=== PATIENT | female | born 1980 | race Two or more races ===

== ENCOUNTER → 2019-07-05 | Emergency (ER) | payer OTHER ==
[~2019-07-05] MED LIST: ACETAMINOPHEN 1000 MG/100 ML VIAL (NON FORMULARY) IVPB ONE; ACETAMINOPHEN INJECTION 100 ML IVPB ONE; AMPICILLIN NA/SULBACTAM NA 3 GM VIAL ONE; AMPICILLIN NA/SULBACTAM NA 3 GM in SODIUM CHLORIDE 100 ML IVPB ONE; DOXYCYCLINE HYCLATE 100 MG VIAL ONE; DOXYCYCLINE INJECTION 100 MG in DEXTROSE 5%-WATER - 100 ML IVPB ONE; HYDROmorphone HCL CARPU-JECT 1 MG/1 ML DISP.SYRIN ONE; HYDROmorphone HCL CARPU-JECT 2 MG/1 ML DISP.SYRIN IVPUSH ONE; ONDANSETRON 4 MG/2 ML VIAL IVPB ONE; ONDANSETRON 4 MG/2 ML VIAL ONE; SODIUM CHLORIDE 1,000 ML IV ONE; morphine CARPU-JECT 2 MG/1 ML DISP.SYRIN IVPUSH ONE; morphine SULFATE 4 MG/ML VIAL ONE
[2019-07-05 08:49] VITALS: BMI 18.4
--- NOTE | 2019-07-05 09:07 | PDOC ---
History of Present Illness - General Chief Complaint: Pain Stated Complaint: FEVER ABD PAIN FOR SINCE MAY Time Seen by Provider: 07/05/19 08:42 History Source: Patient Exam Limitations: No Limitations - History of Present Illness Travel History: No Initial Comments: 07/05/19 09:02 39y F presents with lower abd pain. Pt notse that she has been having low grade fevers for the past 10 days, pt also notse a gradual onset of left lower abd pain and back pain for the past few days. Patient had gone to see her primary care doctor had some lab work done And was found to be anemic and has pending follow-up, However the patient notes that her she had some lower back pain that has been worsening made it difficult for her sleep last night. Patient notes that she had some fever and chills she took some Tylenol with improvement of her fever. When she had chills she also had one episode of nonbloody vomiting. The patient denies any other symptoms including sore throat, body aches, cough, Dysuria, foul-smelling urine, diarrhea, Vaginal discharge, vaginal bleeding. Patient notes that her left lower quadrant pain is constant nature. No recent travel Surgical history: hx of D&Cs ROS Constitutional - + Fever, Chills, no reported HEENT: no reported vision changes, sore throat Respiratory: no reported cough, sob, hemoptysis Cardiac: no reported chest pain, palpitations, light headedness, leg swelling Abd/GI: +abd pain, nausea, vomiting, no reported blood per rectum, melena, diarrhea : no reported dysuria, frequency, discharge Musculskelatal - no reported back pain, joint swelling skin - no reported bruising, erythema, rash neurological: no reported headache, numbness, focal weakness, tingling, ataxia, hematologic: no reported easy bruising, easy bleeding Exam: GENERAL: The patient is awake, alert, and fully oriented, Nontoxic - in no acute distress. HEAD: Normocephalic, atraumatic. EYES: extraocular movements intact, sclera anicteric, conjunctiva clear. ENT: Normal voice, Moist mucous membranes. NECK: Normal range of motion, supple LUNGS: Breath sounds equal, clear to auscultation bilaterally. No wheezes, no rhonchi, no rales. HEART: Regular rate and rhythm, normal S1 and S2 without murmur, rub or gallop. ABDOMEN: moderate LLQ tenderness Soft, No guarding, no rebound. No CVA tenderness EXTREMITIES: Normal range of motion, no edema. NEUROLOGICAL: No facial assymetry, Normal speech, moving all 4 extremities spontanously and symmetrically PSYCH: Normal mood, normal affect. SKIN: Warm, Dry, normal turgor, Differential for the patient's symptoms includes UTI, pyelonephritis, viral syndrome, gastroenteritis will ck basic labs, UA will reassess Past History - Past Medical History Allergies/Adverse Reactions: Allergies Allergy/AdvReac Type Severity Reaction Status Date / Time No Known Allergies Allergy Verified 07/05/19 08:34 Home Medications: Ambulatory Orders Acetaminophen [Tylenol] 650 mg PO PRN PRN 07/05/19 Iron 18 mg PO DAILY 07/05/19 Multivitamins [Tab-A-Vit -] 1 tab PO DAILY 07/05/19 COPD: No - Psycho Social/Smoking Cessation Hx Smoking History: Never smoked Have you smoked in the past 12 months: No Information on smoking cessation initiated: No Hx Alcohol Use: No Drug/Substance Use Hx: No *Physical Exam - Vital Signs Last Vital Signs Temp Pulse Resp BP Pulse Ox 98.5 F 94 H 20 89/49 L 98 07/05/19 08:29 07/05/19 08:29 07/05/19 08:29 07/05/19 08:29 07/05/19 08:29 ED Treatment Course - LABORATORY CBC & Chemistry Diagram: 07/05/19 09:45 07/05/19 09:45 Medical Decision Making - Medical Decision Making 07/05/19 10:55 Work is noted for significant leukocytosis. Patient still with left lower quadrant tenderness will obtain a CT to rule Eval for diverticulitis versus pyelonephritis pts bp soft, though pt notes her bp runs low usually (100/60s) - will continue to hydrate 07/05/19 12:[address] results noted for cystic density in the left adnexa measuring 5.5 cm with an enhancing wall and significant surrounding inflammatory changes and edema.Will obtan an TVUS to eval for TOA will give pt abx for TOA - doxy, unasyn will reasses and d w crisis counselor pt mentions that she had imaging results in may that was noted for a l ovarian cyst that they were watching but hadnt done naything due to the recent delivery. 07/05/19 13:[address] from 05/13 at [facility] showing moderatea bnormal infiltration of the pelivc menseteric fat adjacent to the uterus, bladder, left ovary and superior to the urinary bladder . The infiltration was nonspecific and could be related to ifnlammation or edeema in the pelvic mesenteric fat possibly intermixed with mild free pelvic fluid. It was a non IV contrast study and ovaries were not evaluated but there was no abnormalities seen on the ovaries. 07/05/19 14:23 The pts US reviewed, noted for complex mass like density in the left adenxa measuring 7x6.4cm, suspicous for for TOA will contact ObGyn pt appears well and non toxic. states she has a soreenss in the LLQ but denies 07/05/19 15:[address] de los santos, covering crisis counselor for [facility] - recommend transferring to [facility] for further evluation and possible IR drainage of TOA. she is concerned that she needs a higher level of care as pt is septic and would better be served at a tertiary care center. 07/05/19 15:34 case was discussed with dr. kelly from crisis counselor at [facility], as the pt now has a fever , leukocytosis, recommends ICU consultation with crisis counselor consulting. as pt just developed a fever, will send blood culture lactic acid for sepsis workup. 07/05/19 15:40 07/05/19 16:[address] da silva from ICU. notes there is no bed at this time, but best option may be ED-ED transfer with crisis counselor eval as this may be surgical rather than waiting for an ICU bed without crisis counselor evaluation, and if icu care is needed, thre are other options such as surgical icu that can be looked into upon arrival. Transfer center attempted to contact dr. hale who told the transfer center he will consult upon pt arrival. 07/05/19 16:13 07/05/19 16:23 case was discussed with dr. Monzon of the ED, was accepted to the ED for further managemnt. The patient was seen and examined to determine medical stability. The patient is MEDICALLY STABLE at this time. Labs, EKG, radiological studies were ordered to expedite the patient's care. I certify that I have discussed with the patient and/or his major account representative the following risks and benefits of the proposed transfer. Risks include worsening of patients condition during transport,auto accident, or permanent disability. Benefits include receiving specialized care not available at this facility. I certify that, based on the information available at this time, the medical benefits reasonably expected from the provision of appropriate medical treatment at the receiving facility outweigh the increased risk to the patient. I believe the patient/relative/guardian understands what I have explained and answered. The patient will be transferred to the service of Dr. Monzon at [facility] 07/05/19 17:06 pt appears well, walking around because 'she is tired of sitting', no distress, non toxic. notse mild pain, but does not want any narcotic medications. explained plan with the patient and they agree with the plan for transfer 07/05/19 17:08 Discharge - Discharge Information Problems reviewed: Yes Clinical Impression/Diagnosis: Tubo-ovarian abscess Condition: Guarded Disposition: TRANSFER ACUTE CARE/OTHER HOSP - Admission No - Follow up/Referral - Patient Discharge Instructions - Post Discharge Activity - Transfer to Acute Care Facility Receiving Facility Name: [place] [address] Accepting Physician:: Dr. Monzon
[2019-07-05 09:58] LABS: BASO % 0.1 % (0-2.0); EOS % 0.1 % (0-4.5)
[2019-07-05 10:01] LABS: HEMATOCRIT 25.5 % (32.4-45.2); HEMOGLOBIN 8.3 GM/dl (10.7-15.3); LYMPH % 5.1 % (8-40); MCH 23.9 pg (25.7-33.7); MCHC 32.7 g/dl (32.0-36.0); MEAN CELL VOLUME 73.1 fl (80-96); MEAN PLT VOLUME 8.5 fl (7.5-11.1); MONO % 4.8 % (3.8-10.2); NEUT % 89.9 % (42.8-82.8); PLATELET COUNT 550 K/MM3 (134-434); RBC 3.49 M/mm3 (3.60-5.2); RDW 17.1 % (11.6-15.6)
[2019-07-05 10:10] LABS: ADD RBC MORPHOLOGY YES; ALBUMIN 2.9 g/dl (3.4-5.0); BILIRUBIN,TOTAL 0.5 mg/dl (0.2-1); CALCIUM 8.6 mg/dl (8.5-10); CREATININE 0.6 mg/dl (0.55-1.3); POTASSIUM 3.9 mmol/L (3.5-5.1)
[2019-07-05 11:36] LABS: ANISOCYTOSIS 3+
[2019-07-05 11:37] LABS: PLATELET ESTIMATE SLT INCREASE
[2019-07-05 12:54] LABS: EPITHELIAL CELLS FEW /hpf
[2019-07-05 16:23] VITALS: PULSE 111; TEMP 101
[2019-07-05 17:01] VITALS: BP 92/50
== END | disposition short-term general hospital (02) ==
LOC: FER 08:27
PROC: 3E033NZ Introduction of Analgesics, Hypnotics, Sedatives into Peripheral Vein, Percutaneous Approach (ICD-10-PCS; principal; 2019-07-05)
PROC: 3E03329 Introduction of Other Anti-infective into Peripheral Vein, Percutaneous Approach (ICD-10-PCS; 2019-07-05)
PROC: 3E033GC Introduction of Other Therapeutic Substance into Peripheral Vein, Percutaneous Approach (ICD-10-PCS; 2019-07-05)
PROC: 3E0337Z Introduction of Electrolytic and Water Balance Substance into Peripheral Vein, Percutaneous Approach (ICD-10-PCS; 2019-07-05)
DX: N70.93 Salpingitis and oophoritis, unspecified (principal)
CPT/HCPCS: 36415; 74177-TC; 76830-TC; 80053; 81003; 81015; 83605; 84703; 85025; 87040; 87086; 99285-25; J0131; J7030; Q9967

== ENCOUNTER 2020-05-20 16:29 | Emergency (ER) | payer OTHER | END 2020-05-20 18:27 | disposition home or self-care (01) | LOC: JVIRT 16:29 | DX: Z03.818 Encounter for observation for suspected exposure to other biological agents ruled out (principal) | CPT/HCPCS: Q3014-GT ==

== ENCOUNTER 2020-05-23 16:54 | Emergency (ER) | payer OTHER | END 2020-05-23 17:27 | disposition home or self-care (01) | LOC: JVIRT 16:54 | DX: Z03.818 Encounter for observation for suspected exposure to other biological agents ruled out (principal) | CPT/HCPCS: C9803; Q3014-GT; U0003 ==

== ENCOUNTER 2024-04-18 21:40 | Emergency (ER) | payer OTHER ==
[2024-04-18 21:58] VITALS: BP 107/39; PULSE 66; RESP 16; TEMP 97.3; BMI 18.5
[2024-04-18 22:18] LABS: HCG,QUALITATIVE URINE Negative
== END 2024-04-18 22:43 | disposition home or self-care (01) ==
LOC: FER 21:40
DX: R20.8 Other disturbances of skin sensation (principal)
CPT/HCPCS: 81003; 81015; 84703; 87086; 99283-25